=== PATIENT | female | born 1965 | race African-American/Black ===

== ENCOUNTER 2020-04-20 12:43 | Emergency (ER) | payer MEDICAID ==
[~2020-04-20] VITALS: Ht 154.9 cm; Wt 45.5 kg
[2020-04-20 13:03] VITALS: Ht 154.9 cm; Wt 45.5 kg
[2020-04-20 14:15] LABS: BASOPHILS 0 % (0-2); EOSINOPHILS 0 % (0-7); HEMATOCRIT 24.1 % (36.0-48.0); HEMOGLOBIN 8.4 g/dL (12-16); IMMATURE GRANULOCYTES 0.5 % (0-5); LYMPHOCYTES 4.3 % (15-50); MCH 30.7 pg (26.0-34.0); MCHC 34.9 g/dL (31.0-37.0); MEAN PLATELET VOLUME 9.6 fL (7.4-10.4); MONOCYTES 1.6 % (2-11); NEUTROPHILS 93.6 % (40-80); PLATELET COUNT 227 10x3/uL (130-400); RBC 2.74 10x6/uL (4.00-5.40); RDW 12.6 % (11.5-14.5); WBC 8.2 10x3/uL (4.8-10.8)
[2020-04-20 14:25] LABS: ALBUMIN 4.3 g/dL (3.4-5.0); ALKALINE PHOSPHATASE 143 U/L (30-120); ALT (SGPT) 22 U/L (10-68); BILIRUBIN - TOTAL 0.62 mg/dL (0.2-1.3); CALCIUM 9.7 mg/dL (8.5-10.1); CARBON DIOXIDE 18.3 mmol/L (21.0-32.0); CKMB 3.2 U/L (0.0-3.6); CREATINE KINASE 109 UL (21-215); CREATININE - SERUM 1.1 mg/dL (0.6-1.3); GLUCOSE 102 mg/dL (74-106); POTASSIUM - SERUM 3.7 mmol/L (3.5-5.1); PRO BNP 5207 pg/mL (0-125); PROTEIN - SERUM 8.9 g/dL (6.4-8.2); TROPONIN-I < 0.017 ng/mL (0.000-0.060); UREA NITROGEN 31 mg/dL (7-18); eGFR NON AFRICAN AMERICAN 55 mL/min (90-120)
[2020-04-20 14:32] LABS: APTT 38.1 SECONDS (22.8-39.4); INR 0.99 (0.85-1.17)
[2020-04-20 14:33] LABS: CALC OSMOLALITY 235 mosm/kg (275-300); CHLORIDE - SERUM 80 mmol/L (98-107); SODIUM 113 mmol/L (136-145)
== END 2020-04-20 16:18 | disposition left against medical advice (07) ==
LOC: EDBD 12:43 → D.ER 12:43
PROVIDERS: Family Medicine
DX: R06.02 Shortness of breath (principal); D64.9 Anemia, unspecified; J44.9 Chronic obstructive pulmonary disease, unspecified; E86.0 Dehydration; E87.1 Hypo-osmolality and hyponatremia; R09.02 Hypoxemia; F17.200 Nicotine dependence, unspecified, uncomplicated